=== PATIENT | male | born 1995 | race African-American/Black ===

== ENCOUNTER 2016-12-01 17:19 | Emergency (ER) | payer OTHER ==
--- NOTE | ~2016-12-01 | CT71 ---
[facility] A Service of [facility] RADIOLOGY TEXT RESULTS PATIENT: PASCALE PEARSON LOCATION: NATI : [birth year] UNIT #: [id number] AGE: [address]: Em Jimenez MD SEX: M ORDER DR: [id number] [facility] [address] [facility]. [place], [place] [address] [id number] E MR#: [id number] Acc #: [id number] NAME: PASCALE PEARSON : 1995 SEX: M STUDY DATE/TIME: 12/01/2016 17:47 UNIT: NATI ROOM: STUDY DESCRIPTION: CT Head Wo Contrast Attending Physician: Em Jimenez M.D. Ordering Physician: Em Jimenez M.D. Primary Care Physician: Primary Care Physician No MEDICAL IMAGING REPORT This report is preliminary unless electronic signature is present EXAM CT brain without contrast media HISTORY Headache for 4 days. TECHNIQUE Transaxial imaging of the brain was performed without contrast and compared directly to a prior study of 11/21/2015. This CT examination was performed with one or more of the following radiation dose reduction techniques: automatic exposure control, adjustment of mA and/or kV according to patient size, and iterative reconstruction. FINDINGS Ventricular size and configuration is normal. No intra- or extraaxial mass lesions, fluid collections or mass effect are seen. No focal areas of low attenuation or evidence of acute hemorrhage. Bone windows are reviewed and appear normal. CONCLUSION Normal noncontrast CT of the brain. Dictated by... Isai Smith M.D. THIS IS AN ELECTRONICALLY VERIFIED REPORT Isai Smith M.D. at 12/04/2016 7:21 AM SANTOSH/brenda TD: 12/02/2016 10:44 JOB #: [id number] [facility] A Service of [facility] RADIOLOGY TEXT RESULTS PATIENT: PASCALE PEARSON LOCATION: NATI : [birth year] UNIT #: [id number] AGE: [address]: Em Jimenez MD SEX: M ORDER DR: MEDICAL IMAGING REPORT Page 1 of 1 COPY
[2016-12-01 17:44] LABS: BASOPHIL% 0.3 % (0-2.5); HEMOGLOBIN 14.6 gm/dL (13.0-16.0); LYMPHOCYTE# 0.8 X10e3 (1.0-3.5); MEAN CELL VOLUME 83.6 FL (83-96); MEAN CORPUSCULAR HEMOGLOBIN 27.1 PG (28-34); MEAN CORPUSCULAR HGB CONC 32.4 g/dL (30-36); MEAN PLATELET VOLUME 9.7 FL (6.5-11.5); MONOCYTE# 0.5 X10e3 (0-1.0); MONOCYTE% 6.9 % (3.0-12.0); NEUTROPHIL# 6.3 X10e3 (1.5-7.1); NEUTROPHIL% 82.8 % (40-75); PLATELET COUNT 177 X10e3 (140-420); RED BLOOD COUNT 5.38 X10e (3.90-5.60); RED CELL DISTRIBUTION WIDTH 13.9 % (11.0-15.5); WHITE BLOOD COUNT 7.6 X10e3 (4.0-10.5)
[2016-12-01 17:58] LABS: DIFF IND NO
[2016-12-01 18:10] LABS: ALBUMIN SERUM 5.2 g/dL (3.5-5.0); BILIRUBIN, DIRECT 0.2 mg/dL (0.0-0.2); BILIRUBIN,INDIRECT 1.3 mg/dL (0.0-0.9); BILIRUBIN,TOTAL 1.5 mg/dL (0.2-2.0); BUN/CREATININE RATIO 12.85; CALCIUM SERUM 9.7 mg/dL (8.4-10.2); CREATININE SERUM 0.7 mg/dL (0.6-1.4); GLOM FILT RATE Estimated 155.3 mL/min (>60); POTASSIUM 3.3 mmol/L (3.5-5.1)
[2016-12-01 18:38] LABS: INFLUENZA A NEG (NEG); INFLUENZA B NEG (NEG)
== END 2016-12-01 19:51 | disposition home or self-care (01) ==
LOC: CED 17:19
PROVIDERS: Emergency Medicine
DX: R51 Headache (principal); R11.2 Nausea with vomiting, unspecified
CPT/HCPCS: 36415; 70450; 80048; 80076; 85025; 87651; 87804; 96361; 96374; 96375; 99284; J1100; J1200; J1885; J2765